=== PATIENT | female | born 2005 | race Asian ===

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

== ENCOUNTER 2025-01-21 14:46 | Emergency (ER) | payer BC, SELFPAY ==
[2025-01-21 15:05] VITALS: BP 115/85; PULSE 76; RESP 18; TEMP 36.6; O2SAT 99
[2025-01-21 16:03] LABS: EDSTREPNEGPOS1 Positive (Negative)
--- NOTE | 2025-01-21 16:06 | ED.URI ---
HPI - URI/Sore Throat General Chief Complaint: Upper Respiratory Infection Stated Complaint: Doctors Note Time Seen by Provider: 01/21/25 16:01 Source: patient and RN notes reviewed Mode of arrival: ambulatory Limitations: no limitations History of Present Illness HPI Narrative: 19-year-old female patient presents today with a 2 day history of nasal congestion, sore throat, fatigue. She presents today requesting a note to return to work. Denies shortness of breath or difficulty swallowing. Currently rates her pain 3/10 and has been taking DayQuil with some improvement. Reports sister was recently ill. Related Data Home Medications ?Medication ?Instructions ?Recorded ?Confirmed ?Last Taken ?Type aripiprazole 10 mg tablet mg 01/21/25 Unknown History bupropion HCl 150 mg 24 hr tablet, mg PO 01/21/25 Unknown History extended release Allergies Allergy/AdvReac Type Severity Reaction Status Date / Time No Known Allergies Allergy Verified 01/21/25 15:03 PMFSH Past Medical History Medical History ADD (attention deficit disorder) Surgical History Surgical History H/O wisdom tooth extraction Family History Family History Father Hypertension Social History Social History Smoking status: Never smoker Alcohol intake: never Substance use: never Living arrangements: with family Gender identity (if verbalized by the patient): Female Comments At time of signature, I have reviewed and agree with nursing past medical, surgical, social and family history unless otherwise noted. Please see nursing chart for further information. There is no relevant family history pertinent to the presenting complaint Exam Narrative: GENERAL: Well-appearing, well-nourished, and in no acute distress. HEAD: Normocephalic, atraumatic. EYES: EOMI. No redness or drainage. Conjunctivae normal. ENT: Mucous membranes pink and moist. Nares clear. No rhinorrhea. TMs normal bilaterally. Throat erythematous and mildly edematous without exudate. Uvula midline. NECK: Normal AROM. Supple. No lymphadenopathy. CHEST: No respiratory distress. Clear to auscultation. HEART: Regular rate and rhythm. No murmur appreciated. EXTREMITIES: Normal range of motion. No edema. SKIN: Warm, dry, no rash. Capillary refill normal. Normal skin turgor. NEURO: No focal deficits. Alert and oriented x3. Gait steady. PSYCH: Normal affect. No signs of depression or anxiety. Course Course Level of Care: Express Care Visit Vital Signs Vital signs: Vital Signs Temperature 97.8 F 01/21/25 15:05 Pulse Rate 76 01/21/25 15:05 Respiratory Rate 18 01/21/25 15:05 Blood Pressure 115/85 01/21/25 15:05 Pulse Oximetry 99 01/21/25 15:05 Temperature 97.8 F 01/21/25 15:05 Pulse Rate 76 01/21/25 15:05 Respiratory Rate 18 01/21/25 15:05 Blood Pressure 115/85 01/21/25 15:05 Pulse Oximetry 99 01/21/25 15:05 Reviewed MDM - URI/Sore Throat MDM Narrative Medical decision making narrative: 19-year-old female patient presents today with a 2 day history of nasal congestion, sore throat, fatigue. She presents today requesting a note to return to work. Denies shortness of breath or difficulty swallowing. Currently rates her pain 3/10 and has been taking DayQuil with some improvement. Reports sister was recently ill. Upon exam, patient has some erythematous throat. Remainder of exam is normal. Rapid strep positive. Prescription for amoxicillin sent to pharmacy. Anticipatory guidance given. Vital signs stable. Patient agrees with plan. Differential Diagnosis Differential diagnosis: Likely upper respiratory infection, viral infection, pharyngitis and other (Strep throat, mono) Lab Data Attestation: I reviewed the patient's lab results. Labs: Lab Results 01/21/25 Range/Units 16:02 POC Grp A Strep Screen Positive (Negative) Critical Care Time Critical Care Time Critical Care Time: No Discharge Plan Discharge Clinical Impression: Strep throat Patient Disposition: Home Condition: Stable Instructions: Antibiotic Form, Strep Throat (DC) Additional Instructions: You have tested positive for strep throat. Please take the amoxicillin as prescribed until gone. You will be contagious for 24 hours after starting the medication. Take Tylenol or Ibuprofen for pain or fever, if able. Rest and stay hydrated. Follow up with your PCP in 3 days if symptoms are not improving. Go to the ER immediately if you develop worsening symptoms such as shortness of breath, difficulty swallowing. Patient Language: Setswana Prescriptions: New amoxicillin 875 mg tablet 875 mg PO Q12H 10 Days Qty: 20 0RF No Action aripiprazole 10 mg tablet bupropion HCl 150 mg tablet extended release 24 hr PO Follow-up/Referrals: PHYSICIAN,TRAVEL ACCOMMODATION INSPECTOR [Primary Care Provider, Internal Medicine] Stand Alone Forms: Work/School Release IP Time of Disposition: 16:11
== END 2025-01-21 16:15 | disposition home or self-care (01) ==
PROVIDERS: Emergency Provider Nurse Practitioner
DX: J02.0 Streptococcal pharyngitis (principal); Z79.899 Other long term (current) drug therapy
CPT/HCPCS: 87880; 99213; G0463